=== PATIENT | male | born 1950 | race Caucasian/White ===

== ENCOUNTER 2024-10-05 13:58 | Emergency (ER) | payer MEDICARE, SELFPAY ==
[2024-10-05] VITALS (78 sets, daily range): BP systolic 134–207; BP diastolic 67–100; PULSE 45–81; RESP 11–26; O2SAT 94–100; BMI 26.9
--- NOTE | 2024-10-05 13:59 | EKG_ITS ---
[address] [address] Test Date: 2024-10-05 Pat Name: Tim Orozco Department: [facility] Room: Gender: Male [employer] Manager: LEBRON : 1950 Requested By: Order Number: [id number] Reading MD: Hieu Boo Measurements Intervals [place] Rate: 47 P: -8 WI: 214 QRS: 19 QRSD: 90 T: 52 QT: 446 QTc: 394 Interpretive Statements Sinus bradycardia with 1st degree AV block Nonspecific T wave abnormality Electronically Signed On 10-05-2024 20:04:55 PST by Hieu Boo
--- NOTE | 2024-10-05 13:59 | DI.CT.S_ITS ---
PROCEDURE: CT ANGIO HEAD AND NECK INDICATIONS: riight weakness speech TECHNIQUE: After the administration of intravenous contrast, 1 mm thick sections acquired from the aortic arch through the [place] of [place]. 3-dimensional nslkwje-rjfuocppt-fmlwharhrn (MIP) and/or volume rendering reformats were acquired of the central intracranial vasculature and neck separately. For radiation dose reduction, the following was used: automated exposure control, adjustment of mA and/or kV according to patient size. COMPARISON: None. FINDINGS: Image quality: Diagnostic. BRAIN: CSF spaces: Ventricles are normal in size and shape. Basal cisterns are patent. No extra-axial fluid collections. Brain: No significant abnormality of the brain can be seen. Skull and face: Calvarium and facial bones appear intact, without suspicious lesions. Orbits appear normal. Sinuses: Sinuses and mastoids are clear. HEAD CT ANGIOGRAPHY: Anterior circulation: Intracranial internal carotid arteries are normal in size and flow. The flow within the paired anterior cerebral arteries is normal and symmetric. The flow within the middle cerebral arteries is normal and symmetric. The anterior communicating artery is seen. No aneurysms are seen. Posterior circulation: Visualized portions of the vertebral arteries demonstrate normal caliber, and join to form a normal appearing basilar artery. Flow within the posterior cerebral arteries is normal and symmetric. No aneurysms are seen. NECK CT ANGIOGRAPHY: Carotid system: The great vessels demonstrate a conventional anatomy as they arise from the aortic arch. The origins of the common carotid arteries appear patent. The common carotid arteries demonstrate normal caliber and courses. The bifurcation regions are both widely patent. There is complex plaque present in the proximal left internal carotid artery with a significant soft plaque component which results in a stenosis in the vicinity of 50%. There is less than 50% proximal right internal carotid artery stenosis. Posterior circulation: The origins of the vertebral arteries both appear widely patent. The more superior extracranial portions of both vertebral arteries also demonstrate normal courses and calibers. They join to form a normal appearing basilar artery. Soft tissues: Visualized neck soft tissues demonstrate no suspicious abnormalities. Bones: No suspicious bony lesions. Visualized cervical spine appears normally aligned. IMPRESSION: No significant intracranial arterial abnormality is seen. A complex plaque with soft plaque component in the proximal left internal carotid artery results in a stenosis in the vicinity of 50%. Comment: If suspect acute stroke, consider brain MRI. Any quantitative measurements of stenosis were performed using NASCET criteria. Dictated by: Venkat Berry M.D. on 10/05/2024 at 14:15 Approved by: Venkat Berry M.D. on 10/05/2024 at 14:19
--- NOTE | 2024-10-05 13:59 | DI.CT.S_ITS ---
PROCEDURE: CT STROKE INDICATIONS: right weakness speech TECHNIQUE: Noncontrast 4.5 mm thick angled axial sections acquired from the foramen magnum to the vertex, with coronal reformats. For radiation dose reduction, the following was used: automated exposure control, adjustment of mA and/or kV according to patient size. COMPARISON: None. FINDINGS: Image quality: Diagnostic. CSF spaces: Basal cisterns are patent. No extra-axial fluid collections. The ventricles are symmetric in size and shape. Brain: No intracranial bleeds or masses. There is cerebral volume loss for age, with resultant ventricular and sulcal prominence. There are periventricular and deep white matter chronic small vessel ischemic changes. There is intracranial internal carotid artery atherosclerosis. Skull and face: Calvarium and visualized facial bones appear intact, without suspicious lesions. Sinuses: Visualized sinuses and mastoids are clear. IMPRESSION: No acute intracranial pathology. Comment: Findings were discussed with Dr. Arshad on 10/05/2024 at 1414 hours This study fulfills neurological imaging criteria for inclusion or exclusion of acute stroke therapies based on available published neurological guidelines. Dictated by: Venkat Berry M.D. on 10/05/2024 at 14:13 Approved by: Venkat Berry M.D. on 10/05/2024 at 14:14
--- NOTE | 2024-10-05 14:12 | ED.NEUROSD ---
HPI - Neuro Symptoms/Deficit General Chief Complaint: Neuro Symptoms/Deficit Stated Complaint: Code Stroke-LKW 1300,facial droop,slurred speech Time Seen by Provider: 10/05/24 13:59 History of Present Illness HPI Narrative: Patient is a 74-year-old male history of TIA on aspirin presenting today as a code stroke. He had a last known well at 1:00 p.m.. He and his were both on the [place] when he suddenly had facial droop difficulty speaking and right arm weakness. He continues to have facial droop slurred speech but the right arm has improved. He reports that he had a TIA previously in he said symptoms were similar but they improved within about an hour. He is taking an aspirin but no other anticoagulation. Had a normal morning no other symptoms today. Related Data Allergies Allergy/AdvReac Type Severity Reaction Status Date / Time No Known Drug Allergies Allergy Verified 10/05/24 14:24 Patient History Social History Smoking Status: Never smoker Exam Initial Vital Signs Initial Vital Signs: Vital Signs Pulse Rate 48 L 10/05/24 14:08 GENERAL: Alert well-appearing 74-year-old male HEENT: Head atraumatic,EOMI, pupils reactive, right-sided facial CARDIOVASCULAR: Regular rate and rhythm without murmurs, rubs or gallops. RESPIRATORY: Breath sounds equal bilaterally, no wheezes rales or rhonchi. ABDOMEN: Soft, nontender. Normoactive bowel sounds all 4 quadrants. No guarding or rebound. EXTREMITIES: Normal range of motion, no clubbing or edema. Neurovascularly intact NEUROLOGICAL: Alert and oriented x4.Normal gait and speech. Cranial nerves II through XII grossly intact. Right facial droop slurring of speech hold right and left arm up for 10 seconds each good [id number] he was some numbness in the right SKIN: Warm, dry, no laceration, no petechiae, no rashes or lesions. Scores NIH Stroke Scale Level of Conciousness: Alert, keenly responsive Ask month/age: Answers both questions correctly. Open/close eyes, close hand: Performs both tasks correctly Best gaze horizontal: Normal Visual mock: No visual loss Facial palsy: Minor paralysis, flattened nasolabial fold, asymmetry on smiling Left arm drift: No drift for full 10 sec Right arm drift: No drift for full 10 sec Left leg drift: No drift for full 5 sec Right leg drift: No drift for full 5 sec Limb ataxia: Absent Sensory on face/arms/legs: Mild to moderate sensory loss, can tell touch Best language: No aphasia, normal Dysarthria: Mild to mod,some slurring Extinction or inattention: No abnormality Total NIH Stroke scale score: 3 Course Orders Ordered: Discontinued Medications Aspirin (Aspirin 81 Mg Chew Tab) 324 mg PO NOW ONE Stop: 10/05/24 15:12 Last Admin: 10/05/24 15:21 Dose: 324 mg Documented By: KRISHNA Clopidogrel Bisulfate (Clopidogrel 75 Mg Tablet) 300 mg PO NOW ONE Stop: 10/05/24 15:12 Last Admin: 10/05/24 15:21 Dose: 300 mg Documented By: KRISHNA Nicardipine HCl 25 mg/ Sodium (Chloride) 250 mls @ 50 mls/hr IV TITRATE [facility]; Protocol Last Titration: 10/05/24 21:06 Dose: 0 mg/hr, 0 mls/hr Documented By: Titration: 10/05/24 20:03 Dose: 5 mg/hr, 50 mls/hr Documented By: Titration: 10/05/24 19:03 Dose: 7.5 mg/hr, 75 mls/hr Documented By: Titration: 10/05/24 18:52 Dose: 5 mg/hr, 50 mls/hr Documented By: Titration: 10/05/24 18:42 Dose: 0 mg/hr, 0 mls/hr Documented By: Titration: 10/05/24 18:36 Dose: 5 mg/hr, 50 mls/hr Documented By: Titration: 10/05/24 18:32 Dose: 0 mg/hr, 0 mls/hr Documented By: Admin: 10/05/24 18:24 Dose: 5 mg/hr, 50 mls/hr Documented By: MEHRDAD Labetalol HCl (Labetalol 20 Mg/4 Ml Syringe) 10 mg IV NOW ONE Stop: 10/05/24 16:21 Last Admin: 10/05/24 16:31 Dose: 5 mg Documented By: MEHRDAD Labetalol HCl (Labetalol 20 Mg/4 Ml Syringe) 5 mg IV NOW ONE Stop: 10/05/24 17:31 Last Admin: 10/05/24 17:41 Dose: 5 mg Documented By: MEHRDAD Tenecteplase (Tenecteplase 50 Mg Vial) 24 mg 0.25 mg/kg (24 mg) IV NOW ONE Stop: 10/05/24 16:01 Last Admin: 10/05/24 16:36 Dose: 24 mg Documented By: MEHRDAD Co-signed By: OTTO Vital Signs Vital signs: Vital Signs - 8 hr 10/05/24 14:08 10/05/24 14:11 10/05/24 14:11 Pulse Rate 48 L 49 L Respiratory Rate 12 Blood Pressure 192/93 H Pulse Oximetry 100 Oxygen Delivery Method 10/05/24 14:24 10/05/24 14:30 10/05/24 14:47 Pulse Rate 49 L 48 L 54 L Respiratory Rate 18 24 20 Blood Pressure 192/93 H Pulse Oximetry 99 100 Oxygen Delivery Method Room Air 10/05/24 14:47 10/05/24 14:54 10/05/24 14:59 Pulse Rate 50 L Respiratory Rate 18 Blood Pressure 198/94 H 207/88 H Pulse Oximetry Oxygen Delivery Method 10/05/24 15:06 10/05/24 15:25 10/05/24 15:25 Pulse Rate 55 L 48 L Respiratory Rate 19 Blood Pressure 171/76 H Pulse Oximetry 99 Oxygen Delivery Method Room Air 10/05/24 15:30 10/05/24 15:30 10/05/24 16:00 Pulse Rate 46 L 48 L Respiratory Rate 16 18 Blood Pressure 171/81 H Pulse Oximetry 98 98 Oxygen Delivery Method Room Air 10/05/24 16:00 10/05/24 16:21 10/05/24 16:21 Pulse Rate 48 L Respiratory Rate 16 Blood Pressure 183/82 H 175/76 H Pulse Oximetry 99 Oxygen Delivery Method 10/05/24 16:26 10/05/24 16:26 10/05/24 16:30 Pulse Rate 49 L 48 L Respiratory Rate 22 19 Blood Pressure 187/84 H Pulse Oximetry 98 99 Oxygen Delivery Method 10/05/24 16:30 10/05/24 16:31 10/05/24 16:35 Pulse Rate 52 L 48 L Respiratory Rate 17 Blood Pressure 174/87 H 174/87 H Pulse Oximetry 99 Oxygen Delivery Method 10/05/24 16:35 10/05/24 16:40 10/05/24 16:41 Pulse Rate 46 L 46 L Respiratory Rate 16 18 Blood Pressure 159/77 H Pulse Oximetry 99 98 Oxygen Delivery Method 10/05/24 16:41 10/05/24 16:45 10/05/24 16:45 Pulse Rate 45 L Respiratory Rate Blood Pressure 152/70 H 158/76 H Pulse Oximetry 99 Oxygen Delivery Method 10/05/24 16:50 10/05/24 16:51 10/05/24 16:51 Pulse Rate 48 L 49 L Respiratory Rate 19 17 Blood Pressure 171/77 H Pulse Oximetry 98 98 Oxygen Delivery Method 10/05/24 16:55 10/05/24 16:55 10/05/24 17:00 Pulse Rate 49 L 48 L Respiratory Rate 20 18 Blood Pressure 167/81 H Pulse Oximetry 98 97 Oxygen Delivery Method Room Air 10/05/24 17:05 10/05/24 17:05 10/05/24 17:10 Pulse Rate 46 L 52 L Respiratory Rate 16 16 Blood Pressure 169/81 H Pulse Oximetry 99 98 Oxygen Delivery Method 10/05/24 17:11 10/05/24 17:13 10/05/24 17:13 Pulse Rate 58 L 49 L Respiratory Rate 20 18 Blood Pressure 185/100 H Pulse Oximetry 99 99 Oxygen Delivery Method 10/05/24 17:15 10/05/24 17:15 10/05/24 17:20 Pulse Rate 48 L Respiratory Rate 17 Blood Pressure 176/88 H 168/81 H Pulse Oximetry 98 Oxygen Delivery Method 10/05/24 17:20 10/05/24 17:25 10/05/24 17:26 Pulse Rate 48 L 51 L 51 L Respiratory Rate 20 18 23 Blood Pressure Pulse Oximetry 99 98 98 Oxygen Delivery Method 10/05/24 17:26 10/05/24 17:30 10/05/24 17:35 Pulse Rate 50 L 47 L Respiratory Rate 19 19 Blood Pressure 193/88 H Pulse Oximetry 98 98 Oxygen Delivery Method 10/05/24 17:35 10/05/24 17:40 10/05/24 17:40 Pulse Rate 46 L Respiratory Rate 14 Blood Pressure 182/79 H 159/67 H Pulse Oximetry 97 Oxygen Delivery Method 10/05/24 17:41 10/05/24 17:41 10/05/24 17:45 Pulse Rate 52 L 51 L 48 L Respiratory Rate 20 Blood Pressure 182/86 H 207/80 H Pulse Oximetry 99 Oxygen Delivery Method 10/05/24 17:45 10/05/24 17:50 10/05/24 17:51 Pulse Rate 47 L 47 L Respiratory Rate 18 19 Blood Pressure 152/78 H Pulse Oximetry 98 98 Oxygen Delivery Method 10/05/24 17:51 10/05/24 17:55 10/05/24 17:56 Pulse Rate 48 L 46 L Respiratory Rate 17 20 Blood Pressure 189/95 H Pulse Oximetry 99 98 Oxygen Delivery Method 10/05/24 17:57 10/05/24 17:57 10/05/24 18:00 Pulse Rate 46 L Respiratory Rate 26 H Blood Pressure 172/81 H 169/83 H Pulse Oximetry 97 Oxygen Delivery Method 10/05/24 18:00 10/05/24 18:10 10/05/24 18:10 Pulse Rate 46 L 46 L Respiratory Rate 13 14 Blood Pressure 175/89 H Pulse Oximetry 98 99 Oxygen Delivery Method 10/05/24 18:17 10/05/24 18:17 10/05/24 18:20 Pulse Rate 47 L 47 L Respiratory Rate 17 16 Blood Pressure 166/81 H Pulse Oximetry 98 98 Oxygen Delivery Method 10/05/24 18:20 10/05/24 18:25 10/05/24 18:25 Pulse Rate 45 L Respiratory Rate 14 Blood Pressure 190/84 H 177/84 H Pulse Oximetry 98 Oxygen Delivery Method 10/05/24 18:30 10/05/24 18:30 10/05/24 18:35 Pulse Rate 47 L Respiratory Rate 18 Blood Pressure 157/74 H 177/83 H Pulse Oximetry 97 Oxygen Delivery Method 10/05/24 18:35 10/05/24 18:40 10/05/24 18:40 Pulse Rate 50 L 47 L Respiratory Rate 16 11 L Blood Pressure 155/73 H Pulse Oximetry 96 98 Oxygen Delivery Method 10/05/24 18:47 10/05/24 18:50 10/05/24 18:50 Pulse Rate 52 L 49 L Respiratory Rate 14 Blood Pressure 190/84 H 194/93 H Pulse Oximetry 99 Oxygen Delivery Method 10/05/24 18:55 10/05/24 18:55 10/05/24 19:00 Pulse Rate 47 L Respiratory Rate 17 Blood Pressure 186/84 H 184/89 H Pulse Oximetry 99 Oxygen Delivery Method 10/05/24 19:00 10/05/24 19:05 10/05/24 19:05 Pulse Rate 51 L 56 L Respiratory Rate 18 19 Blood Pressure 157/82 H Pulse Oximetry 98 98 Oxygen Delivery Method 10/05/24 19:10 10/05/24 19:11 10/05/24 19:11 Pulse Rate 62 61 Respiratory Rate 22 19 Blood Pressure 164/89 H Pulse Oximetry 97 98 Oxygen Delivery Method MDM - Neuro Symptoms/Deficit Lab Data 10/05/24 14:35 10/05/24 14:35 Labs: Lab Results 10/05/24 10/05/24 10/05/24 Range/Units 14:20 14:35 15:15 WBC 4.2 L (4.5-11.0) X10^3/uL RBC 4.86 (4.5-5.9) X10^6/uL Hgb 14.3 (13.5-17.5) g/dL Hct 42.9 (41-53) % MCV 88.3 (80-100) fL MCH 29.5 (26-34) PG MCHC 33.4 (30-36) % RDW 13.8 (11.6-14.8) % Plt Count 174 (150-400) X10^3/uL Neut % (Auto) 59.8 (50-75) % Lymph % (Auto) 20.1 L (25-40) % [place] % (Auto) 8.8 (3-14) % Eos % (Auto) 9.9 H (2-4) % Baso % (Auto) 1.4 (0-2) % Neut # (Auto) 2500 (6463-2127) /uL Lymph # (Auto) 800 L (3451-2843) /uL [place] # (Auto) 400 (0-900) /uL Eos # (Auto) 400 (0-450) /uL Baso # (Auto) 100 (0-100) /uL PT 11.5 (9.4-12.5) SECONDS INR 1.0 (0.9-1.3) APTT 33 (25.1-36.5) SECONDS Sodium 137 (137-145) mmol/L Potassium 4.4 (3.4-5.1) mmol/L Chloride 102 (98-107) mmol/L Carbon Dioxide 30 (22-32) mmol/L BUN 23 H (9-20) mg/dL Creatinine 1.13 (0.66-1.25) mg/dL Estimated GFR > 60 (>60) mL/min BUN/Creatinine Ratio 20.4 (6-22) Glucose 103 (80-110) mg/dL Calcium 9.2 (8.4-10.2) mg/dL Total Bilirubin 1.3 (0.2-1.3) mg/dL AST 52 (17-59) IU/L ALT 32 (<50) IU/L Alkaline Phosphatase 64 (38-126) U/L Total Creatine Kinase 108 (55-170) U/L Troponin I < 0.012 (0.01-0.034) ng/mL Total Protein 7.4 (6.3-8.2) g/dL Albumin 4.2 (3.5-5.0) g/dL Globulin 3.2 (1.7-4.1) g/dL Albumin/Globulin Ratio 1.3 (1.0-2.8) Urine Color Yellow Urine Appearance Clear Urine pH 7.0 (4.5-8.0) Ur Specific [place] 1.010 (1.000-1.035) Urine Protein Negative (Negative) Urine Glucose (UA) Negative (Negative) g/dL Urine Ketones Negative (NEGATIVE) Urine Occult Blood Negative (Negative) Urine Nitrate Negative (Negative) Urine Bilirubin Negative (NEGATIVE) Urine Urobilinogen 0.2 (0.2) E.U./dL Ur Leukocyte Esterase Negative (NEGATIVE) Urine RBC None seen (0-5/HPF) Urine WBC None seen (0-5/HPF) Ur Squamous Epith Cells None seen (0-5/HPF) Urine Bacteria None seen (None) Ur Culture Indicated? Cult not indicated Vol Urine Centrifuged 10ml (spun) U Opiates 300ng/mL cut Negative (Negative) Ur Oxycodone Screen Negative (Negative) Urine Methadone Screen Negative (Negative) Ur Barbiturates Screen Negative (Negative) U Tricyclic Antidepress Negative (Negative) Ur Phencyclidine Scrn Negative (Negative) Ur Amphetamines Screen Negative (Negative) U Methamphetamines Scrn Negative (Negative) Ur MDMA Scrn (Ecstasy) Negative (Negative) U Benzodiazepines Scrn Negative (Negative) Urine Cocaine Screen Negative (Negative) U Marijuana (THC) Screen Negative (Negative) Urine Specific [place] (Normal) Ethyl Alcohol < 10 ( - 10) mg/dL Ur Creatinine (Normal) SARS-CoV-2 (PCR) Negative (Negative) 10/05/24 Range/Units 15:15 WBC (4.5-11.0) X10^3/uL RBC (4.5-5.9) X10^6/uL Hgb (13.5-17.5) g/dL Hct (41-53) % MCV (80-100) fL MCH (26-34) PG MCHC (30-36) % RDW (11.6-14.8) % Plt Count (150-400) X10^3/uL Neut % (Auto) (50-75) % Lymph % (Auto) (25-40) % [place] % (Auto) (3-14) % Eos % (Auto) (2-4) % Baso % (Auto) (0-2) % Neut # (Auto) (5250-1137) /uL Lymph # (Auto) (5187-5604) /uL [place] # (Auto) (0-900) /uL Eos # (Auto) (0-450) /uL Baso # (Auto) (0-100) /uL PT (9.4-12.5) SECONDS INR (0.9-1.3) APTT (25.1-36.5) SECONDS Sodium (137-145) mmol/L Potassium (3.4-5.1) mmol/L Chloride (98-107) mmol/L Carbon Dioxide (22-32) mmol/L BUN (9-20) mg/dL Creatinine (0.66-1.25) mg/dL Estimated GFR (>60) mL/min BUN/Creatinine Ratio (6-22) Glucose (80-110) mg/dL Calcium (8.4-10.2) mg/dL Total Bilirubin (0.2-1.3) mg/dL AST (17-59) IU/L ALT (<50) IU/L Alkaline Phosphatase (38-126) U/L Total Creatine Kinase (55-170) U/L Troponin I (0.01-0.034) ng/mL Total Protein (6.3-8.2) g/dL Albumin (3.5-5.0) g/dL Globulin (1.7-4.1) g/dL Albumin/Globulin Ratio (1.0-2.8) Urine Color Urine Appearance Urine pH Normal (4.5-8.0) Ur Specific [place] (1.000-1.035) Urine Protein (Negative) Urine Glucose (UA) (Negative) g/dL Urine Ketones (NEGATIVE) Urine Occult Blood (Negative) Urine Nitrate (Negative) Urine Bilirubin (NEGATIVE) Urine Urobilinogen (0.2) E.U./dL Ur Leukocyte Esterase (NEGATIVE) Urine RBC (0-5/HPF) Urine WBC (0-5/HPF) Ur Squamous Epith Cells (0-5/HPF) Urine Bacteria (None) Ur Culture Indicated? Vol Urine Centrifuged U Opiates 300ng/mL cut (Negative) Ur Oxycodone Screen (Negative) Urine Methadone Screen (Negative) Ur Barbiturates Screen (Negative) U Tricyclic Antidepress (Negative) Ur Phencyclidine Scrn (Negative) Ur Amphetamines Screen (Negative) U Methamphetamines Scrn (Negative) Ur MDMA Scrn (Ecstasy) (Negative) U Benzodiazepines Scrn (Negative) Urine Cocaine Screen (Negative) U Marijuana (THC) Screen (Negative) Urine Specific [place] Normal (Normal) Ethyl Alcohol ( - 10) mg/dL Ur Creatinine Normal (Normal) SARS-CoV-2 (PCR) (Negative) Point of Care Testing Glucose POC [address] scan - head: Radiologist's Impression: PROCEDURE: CT STROKE INDICATIONS: right weakness speech TECHNIQUE: Noncontrast 4.5 mm thick angled axial sections acquired from the foramen magnum to the vertex, with coronal reformats. For radiation dose reduction, the following was used: automated exposure control, adjustment of mA and/or kV according to patient size. COMPARISON: None. FINDINGS: Image quality: Diagnostic. CSF spaces: Basal cisterns are patent. No extra-axial fluid collections. The ventricles are symmetric in size and shape. Brain: No intracranial bleeds or masses. There is cerebral volume loss for age, with resultant ventricular and sulcal prominence. There are periventricular and deep white matter chronic small vessel ischemic changes. There is intracranial internal carotid artery atherosclerosis. Skull and face: Calvarium and visualized facial bones appear intact, without suspicious lesions. Sinuses: Visualized sinuses and mastoids are clear. IMPRESSION: No acute intracranial pathology. Comment: Findings were discussed with Dr. Arshad on 10/05/2024 at 1414 hours This study fulfills neurological imaging criteria for inclusion or exclusion of acute stroke therapies based on available published neurological guidelines. Dictated by: Venkat Berry M.D. on 10/05/2024 at 14:13 Approved by: Venkat Berry M.D. on 10/05/2024 at 14:14 CTA - brain/neck: Radiologist's Impression: PROCEDURE: CT ANGIO HEAD AND NECK INDICATIONS: riight weakness speech TECHNIQUE: After the administration of intravenous contrast, 1 mm thick sections acquired from the aortic arch through the [place] of [place]. 3-dimensional jtftuvl-zaaacsinn-vbgokpynaw (MIP) and/or volume rendering reformats were acquired of the central intracranial vasculature and neck separately. For radiation dose reduction, the following was used: automated exposure control, adjustment of mA and/or kV according to patient size. COMPARISON: None. FINDINGS: Image quality: Diagnostic. BRAIN: CSF spaces: Ventricles are normal in size and shape. Basal cisterns are patent. No extra-axial fluid collections. Brain: No significant abnormality of the brain can be seen. Skull and face: Calvarium and facial bones appear intact, without suspicious lesions. Orbits appear normal. Sinuses: Sinuses and mastoids are clear. HEAD CT ANGIOGRAPHY: Anterior circulation: Intracranial internal carotid arteries are normal in size and flow. The flow within the paired anterior cerebral arteries is normal and symmetric. The flow within the middle cerebral arteries is normal and symmetric. The anterior communicating artery is seen. No aneurysms are seen. Posterior circulation: Visualized portions of the vertebral arteries demonstrate normal caliber, and join to form a normal appearing basilar artery. Flow within the posterior cerebral arteries is normal and symmetric. No aneurysms are seen. NECK CT ANGIOGRAPHY: Carotid system: The great vessels demonstrate a conventional anatomy as they arise from the aortic arch. The origins of the common carotid arteries appear patent. The common carotid arteries demonstrate normal caliber and courses. The bifurcation regions are both widely patent. There is complex plaque present in the proximal left internal carotid artery with a significant soft plaque component which results in a stenosis in the vicinity of 50%. There is less than 50% proximal right internal carotid artery stenosis. Posterior circulation: The origins of the vertebral arteries both appear widely patent. The more superior extracranial portions of both vertebral arteries also demonstrate normal courses and calibers. They join to form a normal appearing basilar artery. Soft tissues: Visualized neck soft tissues demonstrate no suspicious abnormalities. Bones: No suspicious bony lesions. Visualized cervical spine appears normally aligned. IMPRESSION: No significant intracranial arterial abnormality is seen. A complex plaque with soft plaque component in the proximal left internal carotid artery results in a stenosis in the vicinity of 50%. Comment: If suspect acute stroke, consider brain MRI. Any quantitative measurements of stenosis were performed using NASCET criteria. Dictated by: Venkat Berry M.D. on 10/05/2024 at 14:15 Approved by: Venkat Berry M.D. on 10/05/2024 at 14:19 ECG Data Attestation: I personally reviewed and interpreted this ECG as follows: Prior ECG tracings: not available for review Interpretation: normal sinus rhythm rate 47 RI interval 214 QRS 90 QTC 394 MDM Narrative Medical decision making narrative: MDM CC: Code stroke Complicating co-morbidities: Prior TIA Corroborating data: [ ] Data collected from: Medical records reviewed: None to review Differential considered: CVA TIA hemorrhagic stroke Exam documented above, pertinent findings include: NIH of 3 he has right facial droop slurring of speech but strength is equal bilaterally Lab Test results independently reviewed as above. Pertinent findings: CBC no leukocytosis or anemia platelets 174 CMP no electrolyte abnormality glucose 103 Troponin negative Independently reviewed EKG as above no ischemia Imaging studies independently reviewed: Non-con head CT no intracranial hemorrhage CT angio no large vessel occlusion Consultations: Dr. Burns neurologist evaluated patient recognized that patient's symptoms are improving even with their evaluation. Recommended loading dose of aspirin and Plavix. Recommended waiting until 530 which is the 4-1/2 hour kandice of last known well if symptoms worsen again would go ahead and give TNK Treatments: Aspirin Plavix Re-evaluations: 1600 patient began start having worsening slurring of speech. Discussion with patient and about TNK with his waxing and waning of symptoms it seems reasonable for TNK. He has no contraindications 1740 post TNK patient is still having significant slurring of speech blood pressure elevated systolic in the 190 Discussion: Patient is 74-year-old male presenting today as an acute stroke, last known well was 1:00 p.m.. He was NIH stroke scale of 3 but improving symptoms. Stroke Neurology was consulted continue to have improving symptoms with them. TNK was not recommended at that time but it was recommended that we monitor him for worsening symptoms if symptoms worsen then consider giving the TNK. Patient had worsening slurring of speech was very obvious by nurse and myself. Risks and benefits of already been discussed with patient and he agreed to TNK. Dr. Marie neurology was updated on TNK. Teagan well over capacity would prefer that patient be transferred elsewhere but would accept if no were else is unable to take him. Patient not having significant improvement in his slurring of speech but he says that it comes and goes. Blood pressure remains slightly elevated nicardipine drip started to continue with goal of less than [address] Ramon neurology reconsulted difficult time transferring patient due to capacity they kindly accept patient Discharge Plan Departure Patient Disposition: [facility] Clinical Impression: Cerebrovascular accident Referrals: Miscellaneous,Doctor, MD [Primary Care Provider] -
[2024-10-05 14:43] LABS: Add Manual Diff / Slide Review NO; Basophils Absolute Auto 100 /uL (0-100); Basophils Percent Auto 1.4 % (0-2); Eosinophils Absolute Auto 400 /uL (0-450); Eosinophils Percent Auto 9.9 % (2-4); Hematocrit 42.9 % (41-53); Hemoglobin 14.3 g/dL (13.5-17.5); Lymphocytes Absolute Auto 800 /uL (1100-4500); Lymphocytes Percent Auto 20.1 % (25-40); Mean Corpuscular HGB Conc 33.4 % (30-36); Mean Corpuscular Hemoglobin 29.5 PG (26-34); Mean Corpuscular Volume 88.3 fL (80-100); Monocytes Absolute Auto 400 /uL (0-900); Monocytes Percent Auto 8.8 % (3-14); Neutrophils Absolute Auto 2500 /uL (1500-7000); Neutrophils Percent Auto 59.8 % (50-75); Platelet Count 174 X10^3/uL (150-400); Red Blood Cell Count 4.86 X10^6/uL (4.5-5.9); Red Cell Distribution Width 13.8 % (11.6-14.8); White Blood Cell Count 4.2 X10^3/uL (4.5-11.0)
[2024-10-05 14:57] LABS: Prothrombin Time 11.5 SECONDS (9.4-12.5)
[2024-10-05 15:00] LABS: COVID19 -Nasal RAPID Negative (Negative)
[2024-10-05 15:00] LABS: PTT Partial Thromboplastin Tim 33 SECONDS (25.1-36.5)
[2024-10-05 15:04] LABS: Alanine Aminotransferase 32 IU/L (<50); Albumin 4.2 g/dL (3.5-5.0); Albumin Globulin Ratio 1.3 (1.0-2.8); Alkaline Phosphatase 64 U/L (38-126); Aspartate Aminotransferase 52 IU/L (17-59); BUN Creatinine Ratio 20.4 (6-22); Bilirubin Total 1.3 mg/dL (0.2-1.3); Blood Urea Nitrogen 23 mg/dL (9-20); Calcium 9.2 mg/dL (8.4-10.2); Carbon Dioxide 30 mmol/L (22-32); Chloride 102 mmol/L (98-107); Creatine Kinase 108 U/L (55-170); Estimated Glomerular Filt Rate > 60 mL/min (>60); Ethanol (ETOH) < 10 mg/dL; Globulin 3.2 g/dL (1.7-4.1); Glucose 103 mg/dL (80-110); HEMOLYSIS 41 (0-50); Potassium 4.4 mmol/L (3.4-5.1); Sodium 137 mmol/L (137-145); Total Protein 7.4 g/dL (6.3-8.2)
[2024-10-05 15:15] LABS: Troponin I < 0.012 ng/mL (0.01-0.034)
[2024-10-05] MEDS: CLOPIDOGREL 75 MG TABLET 300 MG PO (15:21)
[2024-10-05] MEDS: ASPIRIN 81 MG CHEW TAB 324 MG PO (15:21)
[2024-10-05 15:46] LABS: Appearance Urine UA CLEAR; Bilirubin Urine UA NEGATIVE (NEGATIVE); Color Urine UA YELLOW; Glucose Urine UA NEGATIVE (Negative); Ketones Urine UA NEGATIVE (NEGATIVE); Leukocyte Esterase Urine UA NEGATIVE (NEGATIVE); Nitrite Urine UA NEGATIVE (Negative); Occult Blood Urine UA NEGATIVE (Negative); Protein Urine UA NEGATIVE (Negative); Urobilinogen Urine UA 0.2 E.U./dL (0.2)
[2024-10-05 15:52] LABS: Ur Creatinine Normal (Normal); Ur Specific Gravity Normal (Normal); Urine pH Normal (Normal)
[2024-10-05 15:53] LABS: UR Morphine/Opiate cutoff 300 Negative (Negative); Urine Amphetamines Negative (Negative); Urine Barbiturates Negative (Negative); Urine Benzodiazepines Negative (Negative); Urine Cocaine Negative (Negative); Urine MDMA Negative (Negative); Urine Methadone Negative (Negative); Urine Methamphetamines Negative (Negative); Urine Oxycodone Negative (Negative); Urine Phencyclidine Negative (Negative); Urine Tetrahydrocannabinol Negative (Negative); Urine Tricyclic Antidepressant Negative (Negative)
[2024-10-05 16:04] LABS: Bacteria Urine None Seen; RBC Urine None Seen (0-5/HPF); Squamous Epithelial Cell Urine None Seen (0-5/HPF); Urine Volume 10mL (spun); WBC Urine None Seen (0-5/HPF)
[2024-10-05 16:05] LABS: Culture Indicated Urine Cult Not Indicated
--- NOTE | 2024-10-05 16:08 | PC.NURSE ---
Patients slurring returned, patient having trouble finding his words/ getting words out. Provider at bedside and ordered TNK, see TANGELA
[2024-10-05] MEDS: LABETALOL 20 MG/4 ML SYRINGE 10 MG IV (16:31)
[2024-10-05] MEDS: TENECTEPLASE 50 MG VIAL 24 MG IV (16:36)
--- NOTE | 2024-10-05 16:52 | PC.NURSE ---
Patient given TNK at 1636, charge nurse Selin with this RN, Prior to admin NIH score was 3. 1652-Neuro status remains unchanged, pupils are equal and reactive, patient is a/ox4
[2024-10-05] MEDS: LABETALOL 20 MG/4 ML SYRINGE 5 MG IV (17:41)
--- NOTE | 2024-10-05 18:08 | PC.NURSE ---
Patients blood pressure readings are falsely high due to arm position/ holding phone, educated patient to leave arm relaxed for accurate readings. Provider Jeancarlos is aware and has ordered nicardipine to keep BP below systolic 180's. Recent blood pressure 175/89
[2024-10-05] MEDS: NICARDIPINE 25 MG in SODIUM CHLORIDE 0.9% 240 ML 50 MG IV (18:24)
--- NOTE | 2024-10-05 21:09 | PC.NURSE ---
Patient noticed some bruising on his hands, Provider Tay aware. Patient remains neurally intact, pupils equal and reactive. NIH remains at 3. Patients slurring speech seems to come and go
--- NOTE | 2024-10-05 21:56 | PC.NURSE ---
Patients blood pressure maintained below systolic 180's since 2109, [facility] here for transport and this RN is sending transport with the cardene trip with the parameters to keep blood pressure below 180 systolic
== END 2024-10-05 22:18 | disposition short-term general hospital (02) ==
PROVIDERS: Emergency Provider Emergency Medicine
DX: I63.9 Cerebral infarction, unspecified (principal); R47.81 Slurred speech; Z86.73 Personal history of transient ischemic attack (TIA), and cerebral infarction without residual deficits; Z79.82 Long term (current) use of aspirin; R29.703 NIHSS score 3
CPT/HCPCS: 36415; 70450; 70496; 70498; 80053; 80305; 80320; 81001; 82550; 82962; 84484; 85025; 85610; 85730; 87635; 93005; 96365; 96366; 96375; 96376; 99285; J3101; Q9967